=== PATIENT | male | born 1990 | race Caucasian/White ===

== ENCOUNTER 2017-05-14 18:30 | Emergency (ER) | payer OTHER ==
[~2017-05-14] VITALS: Ht 175.3 cm; Wt 90.7 kg
[2017-05-14 18:40] VITALS: BP 138/88
[2017-05-14] MEDS ORDERED: SULF1TAB24 PO (19:29)
--- NOTE | 2017-05-14 19:29 | PHYS DOC ---
Past Medical History Past Medical History: No Pertinent History, Seizure Past Surgical History: No Surgical History Alcohol Use: None Drug Use: None Adult General Chief Complaint Chief Complaint: SKIN PROBLEM HPI HPI Patient is a 26 year old male who presents with belly button skin infection for two days. Patient states the area has been draining since yesterday. Review of Systems Review of Systems Constitutional: Denies fever or chills [] Musculoskeletal: Denies back pain or joint pain [] Integument: Bellybutton infection Neurologic: Denies headache, focal weakness or sensory changes [] All other systems were reviewed and found to be within normal limits, except as documented in this note. Allergies Allergies Allergies Coded Allergies Type Severity Reaction Last Updated Verified No Known Drug Allergies 04/29/14 No Physical Exam Physical Exam Constitutional: Well developed, well nourished, no acute distress, non-toxic appearance. [] Skin: Rounded abdomen, bellybutton area is erythematous and has trace amount of bloody drainage. Back: No tenderness, no CVA tenderness. [] Extremities: No tenderness, no cyanosis, no clubbing, ROM intact, no edema. [] Neurologic: Alert and oriented X 3, normal motor function, normal sensory function, no focal deficits noted. [] Psychologic: Affect normal, judgement normal, mood normal. [] Current Patient Data Vital Signs Vital Signs Date Time Temp Pulse Resp B/P (MAP) Pulse Ox O2 Delivery O2 Flow Rate FiO2 05/14/17 18:40 98.0 104 16 138/88 (105) 95 Room Air 98.0 EKG EKG [] Radiology/Procedures Radiology/Procedures [] Course & Med Decision Making Course & Med Decision Making Pertinent Labs and Imaging studies reviewed. (See chart for details) Patient has a new skin infection on his belly button. Discharged with Bactrim for 10 days. Instructed to keep the area clean and dry. Tetanus up-to-date. Dragon Disclaimer Dragon Disclaimer This electronic medical record was generated, in whole or in part, using a voice recognition dictation system. Departure Departure Impression: Primary Impression: Infection of umbilical cord Disposition: HOME, SELF-CARE Condition: STABLE Referrals: ABDIRAHMAN ONEILL MD (PCP) Follow-up with your primary care doctor in 2 weeks NIMESH PALENCIA MD Follow-up with the provided general surgeon in 2 weeks for hernia concern Patient Instructions: Skin Infections Additional Instructions: You were seen for belly button skin infection. Please take the prescribed antibiotics until completed. Do not pick on the area. Follow-up with your primary care doctor or the doctor provided doctor in 2 weeks Scripts Sulfamethoxazole/Trimethoprim (BACTRIM DS TABLET) 1 Each Tablet 1 TAB PO BID, #20 TAB Prov: YAKOV FELIX APRN 05/14/17 YAKOV FELIX APRN May 14, 2017 19:29
== END 2017-05-14 19:42 | disposition home or self-care (01) ==
LOC: ER 18:30
DX: L08.82 Omphalitis not of newborn (principal)
CPT/HCPCS: 99283